=== PATIENT | female | born 1965 | race Caucasian/White ===

== ENCOUNTER 2021-04-18 11:45 | Observation (INO) ==
[2021-04-18] MEDS ORDERED: KETOROLAC TROMETHAMINE 15 MG/ML VIAL IV ONE ×2 (12:53→16:10)
[2021-04-18] MEDS ORDERED: methylPREDNISolone 125 MG/2 ML VIAL IV STA (12:53)
--- NOTE | 2021-04-18 12:56 | Emergency Department Note ---
History of Present Illness General Chief complaint: Back Injury/Pain Stated complaint: BACK PAIN Time Seen by Provider: 04/18/21 12:35 Source: patient Mode of arrival: ambulatory Limitations: no limitations History of Present Illness Maximum Pain Intensity: 7 This patient is a 55-year-old female who has a history of back issues comes in after complaint of back pain. She was in usual state of health yesterday was walking around and felt like her back was stiff. Overnight the pains increased to the point where she was having a hard time getting up this morning. She is seen by Dr. Davis regarding the past and called the office but they could not see her today. She said she had issues with her L4-5 area in December and they gave her prednisone therapy and she got better she is never had any back surgery. She s aid no recent fall or trauma she was helping a friend out with some yard work and doing some lifting and thinks she could have aggravated that way. There is been no fever chills no numbness weakness the legs or buttocks. No change in bowel or bladder function no dysuria hematuria. No abdominal pain. She is postmenopausal. She had the Covid vaccine series. No chest pain, shortness of breath or blood or melena in her stool. Home Medications Medication Instructions Recorded Confirmed Type cyanocobalamin (vitamin B-12) 1,000 mcg PO QAM tab 04/08/19 03/19/21 History 1,000 mcg tablet,extended release minocycline 50 mg capsule 50 mg PO DAILY PRN #90 cap 04/08/19 03/19/21 Rx multivitamin 1 tab PO QAM #30 tab 04/08/19 03/19/21 Rx cetirizine 10 mg tablet (All Day 10 mg PO DAILY #90 tab 03/15/20 03/19/21 Rx Allergy (cetirizine)) Saccharomyces boulardii 250 mg 250 mg PO DAILY cap 03/19/21 03/19/21 History capsule (Daily Probiotic (S. boulardii)) fluticasone propionate 50 2 spray INTNAS HS PRN gm 03/19/21 03/19/21 History mcg/actuation nasal spray,suspension (Allergy Relief (fluticasone)) methylprednisolone 4 mg tablets in 4 mg PO .qd #21 ea 04/18/21 Rx a dose pack (Medrol (Kunal)) methylprednisolone 4 mg tablets in 4 mg PO UD #1 packet 04/18/21 Rx a dose pack (Medrol (Kunal)) oxycodone 5 mg tablet 5 mg PO Q4 PRN #20 tab 04/18/21 Rx Allergies Allergy/AdvReac Type Severity Reaction Status Date / Time No Known Drug Allergies Allergy Verified 03/19/21 08:23 Past Med/Surg History Medical History (Updated 04/18/21 @ 18:25 by Branden Amin MD) Acne Surgical History H/O shoulder surgery History of colonoscopy December 2015 repeat 10yrs History of endometrial ablation History of wisdom tooth extraction Family History Mother Breast cancer Grandfather (Maternal) Coronary heart disease Father Hemochromatosis Social History Smoking Status: Never smoker Second Hand Exposure: No (PARENTS SMOKED); Hx Alcohol Use: Yes Alcohol type: hard liquor Hx Substance Use: No Preferred Language: Swedish Communication Ability: Effective Science Intern Required: No Beliefs That Will Affect Care: None marital status: Current Living Situation: Spouse current occupational status: retired Feels Safe at Home: Yes Childhood Exposure to Second-Hand Smoke: Yes caffeine: Yes (coffee, soda ) Dental Care, Regularly: Yes Physical Activity Frequency: Daily Seatbelt Use: always Assistive Devices: Glasses Review of Systems A total of 10 systems reviewed and were otherwise negative Physical Exam Vital Signs Vital Signs - 24 hr 04/18/21 11:47 04/18/21 13:15 04/18/21 15:00 Temperature 37.2 C Temperature Source Oral Pulse Rate 73 Pulse Rate [Finger] 84 68 Pulse Rhythm [Finger] Regular Pulse Strength [Finger] Normal Respiratory Rate 18 18 16 Respiratory Effort / Characteristics Non-Labored Respiratory Depth Normal Normal Respiratory Pattern Regular Blood Pressure 143/86 H Blood Pressure [Right Arm] 128/75 139/77 Blood Pressure Mean 105 Blood Pressure Mean [Right Arm] 92 97 Blood Pressure Position [Right Arm] Lying Pulse Oximetry 100 100 99 Oxygen Delivery Method Room Air Room Air Room Air Sepsis Recent Fever Within 48 Hours No Sepsis New/Unexplained Change in Mental Status No Sepsis Action Taken by Nursing No Action Required 04/18/21 17:51 Temperature Temperature Source Pulse Rate Pulse Rate [Finger] 87 Pulse Rhythm [Finger] Regular Pulse Strength [Finger] Normal Respiratory Rate 17 Respiratory Effort / Characteristics Non-Labored Respiratory Depth Normal Respiratory Pattern Regular Blood Pressure Blood Pressure [Right Arm] 130/70 Blood Pressure Mean Blood Pressure Mean [Right Arm] 90 Blood Pressure Position [Right Arm] Pulse Oximetry 96 Oxygen Delivery Method Room Air Sepsis Recent Fever Within 48 Hours Sepsis New/Unexplained Change in Mental Status Sepsis Action Taken by Nursing General: Well developed well nourished middle-age female who in no acute distr ess, breathing comfortably on room air. Normal speech HEENT: Normal cephalic atraumatic. Pupils are equal round and reactive to light. Extraocular movements are intact. Oropharynx is pink with moist mucous membranes. No swelling of the mouth lips or tongue. Neck: Supple with a midline trachea. No meningeal signs or stiffness, no JVD or bruits. No Stridor. Chest: Clear to auscultation bilaterally. No wheezes or rhonchi. No increased work of breathing. Heart: Regular rate and rhythm without murmurs or gallops. Abdomen: Soft nontender, nondistended without rebound guarding or rigidity. Extremities: No cyanosis clubbing or edema. No calf tenderness or assymetry Spine/Back. Non tender to palpation. No CVA tenderness. She is tender to palpation in the left SI area and towards the buttocks. There is no numbness there is reproducible reproducibly tender with palpation movement. No rash or redness or warmth. It hurts when her leg is moved as well Skin: Good turgor without rashes. Neurologic exam: Cranial nerves two through 12 are intact. Motor and sensation are intact and symmetrical throughout with exception of she has a mild foot drop in the right foot which is chronic. Course Administered Medications Discontinued Medications Ketorolac Tromethamine (Ketorolac Tromethamine 15 Mg/Ml Vial) 10 mg IV NOW ONE Stop: 04/18/21 12:54 Last Admin: 04/18/21 13:03 Dose: 10 mg Documented by: [id number] Ketorolac Tromethamine (Ketorolac Tromethamine 15 Mg/Ml Vial) 10 mg IV NOW ONE Stop: 04/18/21 16:11 Last Admin: 04/18/21 16:28 Dose: 10 mg Documented by: [id number] Methylprednisolone (Methylprednisolone 125 Mg/2 Ml Vial) 125 mg IV NOW STA Stop: 04/18/21 12:54 Last Admin: 04/18/21 13:03 Dose: 125 mg Documented by: [id number] Morphine Sulfate (Morphine Sulfate 4 Mg/Ml 1 Ml Carp\Vial) 4 mg IV NOW STA Stop: 04/18/21 14:30 Last Admin: 04/18/21 14:53 Dose: 4 mg Documented by: [id number] Morphine Sulfate (Morphine Sulfate 4 Mg/Ml 1 Ml Carp\Vial) 4 mg IV NOW STA Stop: 04/18/21 16:11 Last Admin: 04/18/21 16:28 Dose: 4 mg Documented by: [id number] Ondansetron HCl (Ondansetron Inj 2 Mg/Ml 2 Ml Vial) 4 mg IV NOW STA Stop: 04/18/21 14:30 Last Admin: 04/18/21 14:54 Dose: 4 mg Documented by: [id number] Medical Decision Making Differential Diagnosis Sciatica, cauda equina syndrome, disc disease, infection, UTI, intra-abdominal process, Covid Medical Records Attestation: I reviewed the patient's medical records. Home Medications Current Medication List: was personally reviewed by me Laboratory Data Result diagrams: 04/18/21 18:15 04/18/21 18:15 Lab Results 04/18/21 04/18/21 04/18/21 Range/Units 16:30 16:30 18:15 WBC 8.33 (4.8-10.8) K/uL RBC 4.53 (4.2-5.4) M/uL Hgb 14.0 (12.0-16.0) g/dL Hct 40.7 (37-47) % MCV 89.8 (80-100) fL MCH 30.9 (25-34) pg MCHC 34.4 (32-36) g/dL RDW Std Deviation 41.1 (36.4-46.3) fL RDW Coeff of July 12.7 (11.5-14.5) % Plt Count 349 (130-400) K/uL MPV 8.8 (7.4-10.4) fL Immature Gran % (Auto) 0.2 % Neut % (Auto) 92.3 % Lymph % (Auto) 7.0 % Divide % (Auto) 0.4 % Eos % (Auto) 0.0 % Baso % (Auto) 0.1 % Neut # (Auto) 7.69 H (1.4-6.5) K/uL Lymph # (Auto) 0.58 L (1.2-3.4) K/uL Divide # (Auto) 0.03 L (0.11-0.59) K/uL Eos # (Auto) 0.00 (0-0.5) K/uL Baso # (Auto) 0.01 (0-0.2) K/uL Immature Gran # (Auto) 0.02 (0.00-0.02) K/uL COVID-19 Eval Order Covid19 at [facility] SARS-CoV-2 (PCR) NEGATIVE (Negative) Imaging Data Radiologist's Impression: Lumbar Spine MRI 04/18/21 16:10 MR lumbar spine wo con CLINICAL HISTORY: 55 years-old Female with left sided back rad down leg. Acute low back pain with radiation into the left lower leg COMPARISON: Lumbar spine radiographs 11/15/2020, CT abdomen pelvis 02/04/2020 TECHNIQUE: Multiplanar, multi sequence MRI of the lumbar spine was performed without intravenous contrast. FINDINGS: The bottle selector localizer images demonstrate no gross extraspinal abnormality. Probable cyst of the left kidney, 11 mm. Chronic bilateral L5 pars defects with unchanged 7 mm anterolisthesis L5 on S1. Discogenic degeneration with spondylitic spurring and facet arthrosis as detailed below. Mild Modic type I endplate degenerative changes at L4-L5. There is no acute fracture, subluxation, significant bone marrow or soft tissue edema. No endplate erosions. Conus medullaris terminates at T12-L1. Signal within the imaged thoracic spinal cord appears normal. T12-L1: Mild facet arthrosis. No central canal or neural foraminal stenosis. L1-L2: Mild facet arthrosis. No central canal or neural foraminal stenosis. L2-L3: Mild disc desiccation with spondylitic spurring and posterior annular disc bulge, eccentric to the right neural foramen and far right lateral space. Moderate facet arthrosis. The central canal is patent. Mild narrowing of the right lateral recess and bilateral neural foramen. L3-L4: Mild spondylitic spurring with moderate facet arthrosis and small posterior annular disc bulge. Left foraminal annular fissure with disc extrusion measures 4 x 3 mm in transverse and AP dimension on image 16 series 6 and measures up to 1.5 cm in craniocaudal dimension extending several millimeters superior to the inferior L3 endplate. There is resultant severe left neural foraminal narrowing. The central canal is patent. Mild right neural foraminal na rrowing. L4-L5: Mild intervertebral disc space narrowing with disc desiccation. Small circumferential annular disc bulge with mild spondylitic spurring and severe facet arthrosis. Moderate bilateral facet effusions. The central canal is patent. Mild to moderate bilateral neural foraminal narrowing. L5-S1: Severe intervertebral disc space narrowing with unchanged grade 1 anterolisthesis. Moderate spondylitic spurring with circumferential annular disc bulge and disc space uncovering. Chronic bilateral L5 pars defects with severe facet arthrosis. The central canal is patent. Moderate right with moderate to severe left neural foraminal narrowing. IMPRESSION: 1. At L3-L4, there is a left foraminal annular fissure with disc extrusion which results in severe left-sided foraminal stenosis. 2. Chronic bilateral L5 pars defects with unchanged grade 1 anterolisthesis. There is moderate right with moderate to severe left neural foraminal narrowing at this interspace. 3. Multilevel facet arthrosis with associated discogenic degeneration and spondylitic spurring as above. ACT 112: Negative or not required by law. The above report was generated using voice recognition software. It may contain grammatical, syntax or spelling errors. Electronically signed by: Ronen Fuentes M.D. 04/18/2021 5:58 PM MDM Narrative This patient comes in after having back pain. she has known lumbar disc disease at L4-5. she has sciatica type symptoms is reproducible with movement of her leg and movement. She has no neurologic deficit. She has nothing to suggest that she has cauda equina syndrome. She has no fever or anything to suggest infection. IV access was established and she was given Toradol 10 mg IV and Solu-Medrol 125 mg IV. She tried to get up after this and had much more severe pain as it hurts a lot with movement in light of this I did give her morphine 4 mg IV and Zofran 4 mg IV she felt a lot better with this. I do not think imaging is warranted at this point as x-rays would unlikely be helpful as she is healthy and had no trauma. She may ultimately need MRI if this persists but again she has no acute neurologic deficits. Her Covid test was negative. MRI shows a severe left nerve foraminal stenosis due to disc. The patient was feeling a lot better but the pain started to come back. Given her MRI findings and her need for multiple pain medication I do think she has been managed for pain medication and orthopedics consultation. I have consulted Dr. Workman for these measures. I also did discuss the case with Dr. Villarreal who reviewed the MRI. He agrees with the plan and feels the patient should see pain management while in the hospital and can potentially have an injection for this and she can have surgery if needed in about 6 weeks when this cools down. Impression & Plan Intractable low back pain, Lab test negative for COVID-19 virus, Sciatica, Lumbar disc disease Discharge Plan Visit Data Chief Complaint: Back Injury/Pain Stated Complaint: BACK PAIN ED Provider: Branden Amin Discharge Problem: Intractable low back pain, Lab test negative for COVID-19 virus, Sciatica, Lumbar disc disease Discharge Instructions Activity Restrictions/Additional Instructions: Rest. Drink plenty of fluids. Use ibuprofen 400 mg every 6 hours, take with food. Alternative you could use Aleve in the [id number] dosages Use Medrol Dosepak as directedsteroid taper For more severe pain may use OxyIR 5 mg, 1 pill every 4-6 hours as needed. OxyIR may make you drowsy do not take before drinking, driving, working Follow-up with Dr. Vo from [facility] orthopedics/spine Return to the ER if: increasing pain, pain not adequately controlled, numbness or weakness, change in bowel bladder function, any new problems or concerns Forms Stand Alone Forms: My [facility] Prescriptions Prescriptions: New methylprednisolone [Medrol (Kunal)] 4 mg tablets,dose pack 4 mg PO .qd Qty: 21 RF: 0 oxycodone 5 mg tablet 5 mg PO Q4 PRN (Reason: pain) Qty: 20 RF: 0 No Action methylprednisolone [Medrol (Kunal)] 4 mg tablets,dose pack 4 mg PO UD Qty: 1 RF: 0 cetirizine [All Day Allergy (cetirizine)] 10 mg tablet 10 mg PO DAILY Qty: 90 RF: 3 Saccharomyces boulardii [Daily Probiotic (S. boulardii)] 250 mg capsule 250 mg PO DAILY RF: 0 cyanocobalamin (vitamin B-12) 1,000 mcg tablet extended release 1,000 mcg PO QAM RF: 0 multivitamin tablet 1 tab PO QAM Qty: 30 RF: 0 minocycline 50 mg capsule 50 mg PO DAILY PRN (Reason: acne) Qty: 90 RF: 0 fluticasone propionate [Allergy Relief (fluticasone)] 50 mcg/actuation spray,suspension 2 spray INTNAS HS PRNRF: 0 Referrals Referrals: Yue Richard MD [Primary Care Provider] -
[2021-04-18] MEDS ORDERED: MoRPHine SULFATE 4 MG/ML 1 ML CARP\\VIAL IV STA ×3 (14:29→18:43)
[2021-04-18] MEDS ORDERED: ONDANSETRON INJ 2 MG/ML 2 ML VIAL IV STA (14:29)
--- NOTE | 2021-04-18 17:59 | Magnetic Resonance Report ---
MR lumbar spine wo con CLINICAL HISTORY: 55 years-old Female with left sided back rad down leg. Acute low back pain with ra diation into the left lower leg COMPARISON: Lumbar spine radiographs 11/15/2020, CT abdomen pelvis 02/04/2020 TECHNIQUE: Multiplanar, multi sequence MRI of the lumbar spine was performed without intravenous cont rast. FINDINGS: The oil field operator localizer images demonstrate no gross extraspinal abnormality. Probable cyst of the left ki dney, 11 mm. Chronic bilateral L5 pars defects with unchanged 7 mm anterolisthesis L5 on S1. Discogen ic degeneration with spondylitic spurring and facet arthrosis as detailed below. Mild Modic type I en dplate degenerative changes at L4-L5. There is no acute fracture, subluxation, significant bone marro w or soft tissue edema. No endplate erosions. Conus medullaris terminates at T12-L1. Signal within th e imaged thoracic spinal cord appears normal. T12-L1: Mild facet arthrosis. No central canal or neural foraminal stenosis. L1-L2: Mild facet arthrosis. No central canal or neural foraminal stenosis. L2-L3: Mild disc desiccation with spondylitic spurring and posterior annular disc bulge, eccentric to the right neural foramen and far right lateral space. Moderate facet arthrosis. The central canal is patent. Mild narrowing of the right lateral recess and bilateral neural foramen. L3-L4: Mild spondylitic spurring with moderate facet arthrosis and small posterior annular disc bulg e. Left foraminal annular fissure with disc extrusion measures 4 x 3 mm in transverse and AP dimensio n on image 16 series 6 and measures up to 1.5 cm in craniocaudal dimension extending several millimet ers superior to the inferior L3 endplate. There is resultant severe left neural foraminal narrowing. The central canal is patent. Mild right neural foraminal narrowing. L4-L5: Mild intervertebral disc space narrowing with disc desiccation. Small circumferential annular disc bulge with mild spondylitic spurring and severe facet arthrosis. Moderate bilateral facet effus ions. The central canal is patent. Mild to moderate bilateral neural foraminal narrowing. L5-S1: Severe intervertebral disc space narrowing with unchanged grade 1 anterolisthesis. Moderate s pondylitic spurring with circumferential annular disc bulge and disc space uncovering. Chronic bilate ral L5 pars defects with severe facet arthrosis. The central canal is patent. Moderate right with mod erate to severe left neural foraminal narrowing. IMPRESSION: 1. At L3-L4, there is a left foraminal annular fissure with disc extrusion which results in severe le ft-sided foraminal stenosis. 2. Chronic bilateral L5 pars defects with unchanged grade 1 anterolisthesis. There is moderate right with moderate to severe left neural foraminal narrowing at this interspace. 3. Multilevel facet arthrosis with associated discogenic degeneration and spondylitic spurring as abo ve. ACT 112: Negative or not required by law. The above report was generated using voice recognition software. It may contain grammatical, syntax o r spelling errors. Electronically signed by: Ronen Fuentes M.D. 04/18/2021 5:58 PM
[2021-04-18 18:37] LABS: Basophils # (auto) 0.01 K/uL (0-0.2); Basophils % (auto) 0.1 %; Hematocrit (blood only) 40.7 % (37-47); Immature Granulocytes # (auto) 0.02 K/uL (0.00-0.02); Immature Granulocytes % (auto) 0.2 %; Lymphocytes # (auto) 0.58 K/uL (1.2-3.4); Mean Corpuscular Hemoglobin 30.9 pg (25-34); Mean Corpuscular Hgb Conc 34.4 g/dL (32-36); Mean Corpuscular Volume 89.8 fL (80-100); Mean Platelet Volume 8.8 fL (7.4-10.4); Monocytes # (auto) 0.03 K/uL (0.11-0.59); Monocytes % (auto) 0.4 %; Neutrophils # (auto) 7.69 K/uL (1.4-6.5); Neutrophils % (auto) 92.3 %; Platelet Count 349 K/uL (130-400); RDW Coefficient of Variation 12.7 % (11.5-14.5); RDW Standard Deviation 41.1 fL (36.4-46.3); Red Blood Count 4.53 M/uL (4.2-5.4); White Blood Count 8.33 K/uL (4.8-10.8)
--- NOTE | 2021-04-18 18:40 | Communication Note ---
Date of Service: April 18, 2021 Telephone consult completed on patient at request of Dr. Branden Amin, [facility] [id number] previously known to me with new onset <24hr history of left leg radiculopathy with MRI finding of left L3-4 foraminal disc herniation neurologically unchanged from prior visit with no neurological deficit of the left lower extremity unable to be discharged home due to pain issues Plan: - urgent surgery not indicated for patient; should undergo course of non-op management for 6 weeks first - recommend admission under hospitalist service with consult to pain management for consideration of left L3-4 TF injection or ASTON injection while inpatient - will benefit from PT, steroids followed by NSAIDs - follow-up 1-2 weeks in my clinic Mikaela Villarreal MD Spine Surgeon [facility]
[2021-04-18 19:01] LABS: BUN Creatinine Ratio 19.2 (10-20); Blood Urea Nitrogen 15 mg/dl (7-18); Calcium 9.1 mg/dl (8.5-10.1); Carbon Dioxide 27 mmol/L (21-32); Chloride 108 mmol/L (98-107); Est GFR (African American) 97.7 ml/min; Est GFR (Non-African American) 84.3 ml/min; Glucose 163 mg/dl (70-99); Potassium 3.8 mmol/L (3.5-5.1); Sodium 140 mmol/L (136-145)
--- NOTE | 2021-04-18 19:45 | History & Physical Report ---
Date of Service April 18, 2021 Assessment & Plan (1) Intractable low back pain: Plan: 55yo female with no significant past medical history presenting with severe backpain, difficulty ambulating. Patient mowed the lawn and did some lifting last week and noted soreness of her back. Has had severe pain with radicular symptoms since 23:30 last evening. Numbness in LLE corresponds with L3-L4 dermatome. MRI reveals left foraminal annular fissure with disc extrusion at L3-L4 resulting in severe left-sided foraminal stenosis. Chronic bilateral L5 pars defect. Multilevel facet arthrosis. Patient administered several doses of morphine as well as solumedrol in the ER. Pain is presently improved. -Observation to medical floor -Tylenol 1gm PO TID -Lidoderm patch -Toradol 15mg IV q 6 hours PRN -Morphine PRN -Steroid taper - 60mg po x 2, 40mg po x 2, 20mg po x 2 and 10mg po x 2 -PT/OT evaluation Plan: F/E/N - [place]. Monitor electrolytes. Regular diet as tolerated Ppx - Lovenox Code - Full per discussion with patient Dispo - Observation to medical floor History of Present Illness Chief Complaint: back pain Primary Care Provider: Yue Richard MD Bessy Desai is a 55yo female with no significant medical history presenting with intractable back pain, difficulty with ambulation. Patient mowed the lawn last week and helped her friend with some landscaping. She states that her back felt tight following these activities. Last evening around 23:00 she had acute worsening of her low back pain. She was unable to rest. This morning she was unable to get out of bed and ambulate. Her pain is located on left lumbar regio n with radiation into her left buttock as well as numbness in her left medial thigh and knee. She feels that her left leg is weak and gives out on her with ambulation. She denies trauma. No fever/chills/rigors. Denies bowel or bladder incontinence or retention. No additional complaints at this time. Specifically denies chest pain, palpitations, cough, SOB, nausea, vomiting, diarrhea or cons tipation. ER Course: Morphine 4mg IV x 3, Toradol 10mg IV x 2, Zofran 4mg IV, Solumedrol 125mg IV Allergies Allergy/AdvReac Type Severity Reaction Status Date / Time No Known Drug Allergies Allergy Verified 03/19/21 08:23 Home Medications Medication Instructions Recorded Confirmed Type cyanocobalamin (vitamin B-12) 1,000 mcg PO QAM tab 04/08/19 04/18/21 History 1,000 mcg tablet,extended release multivitamin 1 tab PO QAM #30 tab 04/08/19 04/18/21 Rx cetirizine 10 mg tablet (All Day 10 mg PO DAILY #90 tab 03/15/20 04/18/21 Rx Allergy (cetirizine)) fluticasone propionate 50 2 spray INTNAS HS PRN gm 03/19/21 04/18/21 History mcg/actuation nasal spray,suspension (Allergy Relief (fluticasone)) methylprednisolone 4 mg tablets in 4 mg PO .qd #21 ea 04/18/21 Rx a dose pack (Medrol (Kunal)) oxycodone 5 mg tablet 5 mg PO Q4 PRN #20 tab 04/18/21 Rx Past Med/Surg History Medical History (Updated 04/18/21 @ 18:25 by Branden Amin MD) Acne Surgical History H/O shoulder surgery History of colonoscopy December 2015 repeat 10yrs History of endometrial ablation History of wisdom tooth extraction Family History Mother Breast cancer Grandfather (Maternal) Coronary heart disease Father Hemochromatosis Social History Smoking Status: Never smoker Second Hand Exposure: No (PARENTS SMOKED); Hx Alcohol Use: Yes Alcohol type: hard liquor Hx Substance Use: No Preferred Language: Kinyarwanda Communication Ability: Effective Butcher Helper Required: No Beliefs That Will Affect Care: None marital status: Current Living Situation: Spouse current occupational status: retired Feels Safe at Home: Yes Childhood Exposure to Second-Hand Smoke: Yes caffeine: Yes (coffee, soda ) Dental Care, Regularly: Yes Physical Activity Frequency: Daily Seatbelt Use: always Assistive Devices: Glasses Review of Systems Review of Systems: All systems reviewed & are unremarkable except as noted in HPI & below Physical Exam Physical Exam: General: patient resting comfortably, NAD, non-toxic in appearance, AA&O x 4 Skin: warm, dry, intact, no rashes or lesions HEENT: NC/AT, PERRL, EOMI, anicteric sclera, conjunctiva without injection, external ear normal to inspection and nontender, nares patent, moist mucus membranes, dentition intact, no oropharyngeal lesions, neck supple, trachea midline, no LAD, no thyromegaly, no JVD Heart: +S1/S2, regular, no m/r/g Lungs: equal air entry bilaterally, no rales/rhonchi/wheezes Abd: +BS, soft, NT/ND, no masses/organomegaly/ascites Ext: warm, 2+ pulses in UE/LE bilaterally, no clubbing/cyanosis or edema Neuro: nonfocal, patient AA&O x 4, speech intact, no facial droop, moving all extremities on command with equal strength 5/5 Pain with palpation of left lumbar region and sacral region Mild numbness of left medial thigh and knee Strength intact Results & Data Results & Data ([facility]) Vital Signs (Past 12 Hours) Vital Signs Temp Pulse Pulse Resp BP BP Pulse Ox 04/18/21 19:08 87 16 116/69 97 04/18/21 17:51 87 17 130/70 96 04/18/21 15:00 68 16 139/77 99 04/18/21 13:15 84 18 128/75 100 04/18/21 11:47 37.2 C 73 18 143/86 H 100 Laboratory Results Laboratory Results WBC 8.33 K/uL (4.8-10.8) 04/18/21 18:15 RBC 4.53 M/uL (4.2-5.4) 04/18/21 18:15 Hgb 14.0 g/dL (12.0-16.0) 04/18/21 18:15 Hct 40.7 % (37-47) 04/18/21 18:15 MCV 89.8 fL (80-100) 04/18/21 18:15 MCH 30.9 pg (25-34) 04/18/21 18:15 MCHC 34.4 g/dL (32-36) 04/18/21 18:15 RDW Std Deviation 41.1 fL (36.4-46.3) 04/18/21 18:15 RDW Coeff of July 12.7 % (11.5-14.5) 04/18/21 18:15 Plt Count 349 K/uL (130-400) 04/18/21 18:15 MPV 8.8 fL (7.4-10.4) 04/18/21 18:15 Immature Gran % (Auto) 0.2 % 04/18/21 18:15 Neut % (Auto) 92.3 % 04/18/21 18:15 Lymph % (Auto) 7.0 % 04/18/21 18:15 [place] % (Auto) 0.4 % 04/18/21 18:15 Eos % (Auto) 0.0 % 04/18/21 18:15 Baso % (Auto) 0.1 % 04/18/21 18:15 Neut # (Auto) 7.69 K/uL (1.4-6.5) H 04/18/21 18:15 Lymph # (Auto) 0.58 K/uL (1.2-3.4) L 04/18/21 18:15 [place] # (Auto) 0.03 K/uL (0.11-0.59) L 04/18/21 18:15 Eos # (Auto) 0.00 K/uL (0-0.5) 04/18/21 18:15 Baso # (Auto) 0.01 K/uL (0-0.2) 04/18/21 18:15 Immature Gran # (Auto) 0.02 K/uL (0.00-0.02) 04/18/21 18:15 Sodium 140 mmol/L (136-145) 04/18/21 18:15 Potassium 3.8 mmol/L (3.5-5.1) 04/18/21 18:15 Chloride 108 mmol/L (98-107) H 04/18/21 18:15 Carbon Dioxide 27 mmol/L (21-32) 04/18/21 18:15 Anion Gap 5.0 (3-11) 04/18/21 18:15 BUN 15 mg/dl (7-18) 04/18/21 18:15 Creatinine 0.79 mg/dl (0.6-1.2) 04/18/21 18:15 Est Cr Clr Drug Dosing Not Reportable 04/18/21 18:15 Est GFR ( Amer) 97.7 ml/min 04/18/21 18:15 Est GFR (Non-Af Amer) 84.3 ml/min 04/18/21 18:15 BUN/Creatinine Ratio 19.2 (10-20) 04/18/21 18:15 Glucose 163 mg/dl (70-99) H 04/18/21 18:15 Calcium 9.1 mg/dl (8.5-10.1) 04/18/21 18:15 Urine Color Yellow 04/18/21 18:15 Urine Appearance Clear (Clear) 04/18/21 18:15 Urine pH 6.0 (4.5-7.5) 04/18/21 18:15 Ur Specific [place] 1.024 (1.000-1.030) 04/18/21 18:15 Urine Protein Trace (Negative) H 04/18/21 18:15 Urine Glucose (UA) Negative (Negative) 04/18/21 18:15 Urine Ketones 2+ (Negative) H 04/18/21 18:15 Urine Blood 2+ (Negative) H 04/18/21 18:15 Urine Nitrite Negative (Negative) 04/18/21 18:15 Urine Bilirubin Negative (Negative) 04/18/21 18:15 Urine Urobilinogen Negative (Negative) 04/18/21 18:15 Ur Leukocyte Esterase 1+ (Negative) H 04/18/21 18:15 Urine WBC (Auto) 10-30 /hpf (0-5) H 04/18/21 18:15 Urine RBC (Auto) 10-30 /hpf (0-4) H 04/18/21 18:15 U Hyaline Cast (Auto) 5-10 /lpf (0-5) H 04/18/21 18:15 U Epithel Cells (Auto) 20-30 /lpf (0-5) H 04/18/21 18:15 Urine Bacteria (Auto) Negative (Negative) 04/18/21 18:15 COVID-19 Eval Order Covid19 at [facility] 04/18/21 16:30 SARS-CoV-2 (PCR) NEGATIVE (Negative) 04/18/21 16:30 Impressions Lumbar Spine MRI 04/18/21 16:10 MR lumbar spine wo con CLINICAL HISTORY: 55 years-old Female with left sided back rad down leg. Acute low back pain with radiation into the left lower leg COMPARISON: Lumbar spine radiographs 11/15/2020, CT abdomen pelvis 02/04/2020 TECHNIQUE: Multiplanar, multi sequence MRI of the lumbar spine was performed without intravenous contrast. FINDINGS: The retirement plan specialist localizer images demonstrate no gross extraspinal abnormality. Probable cyst of the left kidney, 11 mm. Chronic bilateral L5 pars defects with unchanged 7 mm anterolisthesis L5 on S1. Discogenic degeneration with spondylitic spurring and facet arthrosis as detailed below. Mild Modic type I endplate degenerative changes at L4-L5. There is no acute fracture, subluxation, significant bone marrow or soft tissue edema. No endplate erosions. Conus medullaris terminates at T12-L1. Signal within the imaged thoracic spinal cord appears normal. T12-L1: Mild facet arthrosis. No central canal or neural foraminal stenosis. L1-L2: Mild facet arthrosis. No central canal or neural foraminal stenosis. L2-L3: Mild disc desiccation with spondylitic spurring and posterior annular disc bulge, eccentric to the right neural foramen and far right lateral space. Moderate facet arthrosis. The central canal is patent. Mild narrowing of the right lateral recess and bilateral neural foramen. L3-L4: Mild spondylitic spurring with moderate facet arthrosis and small posterior annular disc bulge. Left foraminal annular fissure with disc extrusion measures 4 x 3 mm in transverse and AP dimension on image 16 series 6 and measures up to 1.5 cm in craniocaudal dimension extending several millimeters superior to the inferior L3 endplate. There is resultant severe left neural foraminal narrowing. The central canal is patent. Mild right neural foraminal narrowing. L4-L5: Mild intervertebral disc space narrowing with disc desiccation. Small circumferential annular disc bulge with mild spondylitic spurring and severe facet arthrosis. Moderate bilateral facet effusions. The central canal is patent. Mild to moderate bilateral neural foraminal narrowing. L5-S1: Severe intervertebral disc space narrowing with unchanged grade 1 anterolisthesis. Moderate spondylitic spurring with circumferential annular disc bulge and disc space uncovering. Chronic bilateral L5 pars defects with severe facet arthrosis. The central canal is patent. Moderate right with moderate to severe left neural foraminal narrowing. IMPRESSION: 1. At L3-L4, there is a left foraminal annular fissure with disc extrusion which results in severe left-sided foraminal stenosis. 2. Chronic bilateral L5 pars defects with unchanged grade 1 anterolisthesis. There is moderate right with moderate to severe left neural foraminal narrowing at this interspace. 3. Multilevel facet arthrosis with associated discogenic degeneration and spondylitic spurring as above. ACT 112: Negative or not required by law. The above report was generated using voice recognition software. It may contain grammatical, syntax or spelling errors. Electronically signed by: Ronen Fuentes M.D. 04/18/2021 5:58 PM Code Status & VTE Plan VTE Prophylaxis Plan VTE Prophylaxis will be ordered: Yes PG Care Time/CCT Total # of Minutes Spent Total Time Spent with Patient: Total time spent is greater than 50% in coordination of care (as documented) at patient's floor/unit and/or counseling patient: Coding Level of Care Code INT OBSERVATION CARE 50M LVL 2 Diagnoses Intractable low back pain M54.59
[2021-04-18 20:12] LABS: Appearance Urine Clear (Clear); Bacteria Urine Automated Negative (Negative); Bilirubin Urine Negative (Negative); Blood Urine 2+ (Negative); Color Urine Yellow; Epithelial Cell Urine Auto 20-30 /lpf (0-5); Glucose Urine UA Negative (Negative); Ketones Urine 2+ (Negative); Leukocyte Esterase Urine 1+ (Negative); Nitrite Urine Negative (Negative); Protein Urine Trace (Negative); Specific Gravity Urine 1.024 (1.000-1.030); Urobilinogen Urine Negative (Negative)
[2021-04-18] MEDS ORDERED: MoRPHine SULFATE 2 MG/ML CARP IV PRN (21:46)
[2021-04-18] MEDS ORDERED: KETOROLAC TROMETHAMINE 15 MG/ML VIAL IV PRN (21:46)
[2021-04-18] MEDS ORDERED: ONDANSETRON INJ 2 MG/ML 2 ML VIAL IV PRN (21:46)
[2021-04-18] MEDS ORDERED: POLYETHYLENE (MIRALAX) 17 GM PACK PO PRN (21:46)
[2021-04-18] MEDS ORDERED: DOCUSATE SODIUM 100 MG CAP PO PRN (21:46)
[2021-04-18] MEDS ORDERED: MoRPHine SULFATE 4 MG/ML 1 ML CARP\\VIAL IV PRN (21:46)
[2021-04-18] MEDS ORDERED: ENOXAPARIN INJ 40 MG/0.4 ML SYR SQ SCH (22:00)
[2021-04-18] MEDS: ACETAMINOPHEN 500 MG TAB PO SCH (23:11)
[2021-04-19] MEDS: ACETAMINOPHEN 500 MG TAB PO SCH (06:06)
[2021-04-19] MEDS ORDERED: LIDOCAINE 5% 1 PATCH TD SCH (09:00)
[2021-04-19] MEDS ORDERED: CETIRIZINE HCL 10 MG TABLET PO SCH (09:00)
[2021-04-19] MEDS ORDERED: predniSONE 20 MG TAB PO SCH (09:00)
--- NOTE | 2021-04-19 09:37 | Hospitalist Progress Note ---
Date of Service April 19, 2021 Assessment & Plan Admission and Anticipated Discharge Date Admission Date: April 18, 2021 Results & Data Results & Data ([facility]) Vital Signs (Past 12 Hours) Vital Signs Temp Pulse Resp BP Pulse Ox 04/19/21 07:35 36.8 C 87 18 106/60 98 Laboratory Results 04/18/21 04/18/21 04/18/21 Range/Units 18:15 18:15 18:15 WBC 8.33 (4.8-10.8) K/uL RBC 4.53 (4.2-5.4) M/uL Hgb 14.0 (12.0-16.0) g/dL Hct 40.7 (37-47) % MCV 89.8 (80-100) fL MCH 30.9 (25-34) pg MCHC 34.4 (32-36) g/dL RDW Std Deviation 41.1 (36.4-46.3) fL RDW Coeff of July 12.7 (11.5-14.5) % Plt Count 349 (130-400) K/uL MPV 8.8 (7.4-10.4) fL Immature Gran % (Auto) 0.2 % Neut % (Auto) 92.3 % Lymph % (Auto) 7.0 % [place] % (Auto) 0.4 % Eos % (Auto) 0.0 % Baso % (Auto) 0.1 % Neut # (Auto) 7.69 H (1.4-6.5) K/uL Lymph # (Auto) 0.58 L (1.2-3.4) K/uL [place] # (Auto) 0.03 L (0.11-0.59) K/uL Eos # (Auto) 0.00 (0-0.5) K/uL Baso # (Auto) 0.01 (0-0.2) K/uL Immature Gran # (Auto) 0.02 (0.00-0.02) K/uL Sodium 140 (136-145) mmol/L Potassium 3.8 (3.5-5.1) mmol/L Chloride 108 H (98-107) mmol/L Carbon Dioxide 27 (21-32) mmol/L Anion Gap 5.0 (3-11) BUN 15 (7-18) mg/dl Creatinine 0.79 (0.6-1.2) mg/dl Est Cr Clr Drug Dosing Not Reportable Est GFR ( Amer) 97.7 ml/min Est GFR (Non-Af Amer) 84.3 ml/min BUN/Creatinine Ratio 19.2 (10-20) Glucose 163 H (70-99) mg/dl Calcium 9.1 (8.5-10.1) mg/dl Urine Color Yellow Urine Appearance Clear (Clear) Urine pH 6.0 (4.5-7.5) Ur Specific [place] 1.024 (1.000-1.030) Urine Protein Trace H (Negative) Urine Glucose (UA) Negative (Negative) Urine Ketones 2+ H (Negative) Urine Blood 2+ H (Negative) Urine Nitrite Negative (Negative) Urine Bilirubin Negative (Negative) Urine Urobilinogen Negative (Negative) Ur Leukocyte Esterase 1+ H (Negative) Urine WBC (Auto) 10-30 H (0-5) /hpf Urine RBC (Auto) 10-30 H (0-4) /hpf U Hyaline Cast (Auto) 5-10 H (0-5) /lpf U Epithel Cells (Auto) 20-30 H (0-5) /lpf Urine Bacteria (Auto) Negative (Negative) COVID-19 Eval Order SARS-CoV-2 (PCR) (Negative) 04/18/21 04/18/21 Range/Units 16:30 16:30 WBC (4.8-10.8) K/uL RBC (4.2-5.4) M/uL Hgb (12.0-16.0) g/dL Hct (37-47) % MCV (80-100) fL MCH (25-34) pg MCHC (32-36) g/dL RDW Std Deviation (36.4-46.3) fL RDW Coeff of July (11.5-14.5) % Plt Count (130-400) K/uL MPV (7.4-10.4) fL Immature Gran % (Auto) % Neut % (Auto) % Lymph % (Auto) % [place] % (Auto) % Eos % (Auto) % Baso % (Auto) % Neut # (Auto) (1.4-6.5) K/uL Lymph # (Auto) (1.2-3.4) K/uL [place] # (Auto) (0.11-0.59) K/uL Eos # (Auto) (0-0.5) K/uL Baso # (Auto) (0-0.2) K/uL Immature Gran # (Auto) (0.00-0.02) K/uL Sodium (136-145) mmol/L Potassium (3.5-5.1) mmol/L Chloride (98-107) mmol/L Carbon Dioxide (21-32) mmol/L Anion Gap (3-11) BUN (7-18) mg/dl Creatinine (0.6-1.2) mg/dl Est Cr Clr Drug Dosing Est GFR ( Amer) ml/min Est GFR (Non-Af Amer) ml/min BUN/Creatinine Ratio (10-20) Glucose (70-99) mg/dl Calcium (8.5-10.1) mg/dl Urine Color Urine Appearance (Clear) Urine pH (4.5-7.5) Ur Specific [place] (1.000-1.030) Urine Protein (Negative) Urine Glucose (UA) (Negative) Urine Ketones (Negative) Urine Blood (Negative) Urine Nitrite (Negative) Urine Bilirubin (Negative) Urine Urobilinogen (Negative) Ur Leukocyte Esterase (Negative) Urine WBC (Auto) (0-5) /hpf Urine RBC (Auto) (0-4) /hpf U Hyaline Cast (Auto) (0-5) /lpf U Epithel Cells (Auto) (0-5) /lpf Urine Bacteria (Auto) (Negative) COVID-19 Eval Order Covid19 at [facility] SARS-CoV-2 (PCR) NEGATIVE (Negative) PG Care Time/CCT Total # of Minutes Spent Total Time Spent with Patient: Total time spent is greater than 50% in coordination of care (as documented) at patient's floor/unit and/or counseling patient: Coding
[2021-04-19 10:32] LABS: BUN Creatinine Ratio 28.4 (10-20); Calcium 8.7 mg/dl (8.5-10.1); Creatinine Clr Calc Pharmacy 79.8 ml/min; Est GFR (African American) 102.3 ml/min; Est GFR (Non-African American) 88.3 ml/min
--- NOTE | 2021-04-19 12:51 | Orthopedic Consultation ---
Date of Service April 19, 2021 Assessment & Plan (1) Lumbar disc herniation with radiculopathy: Plan: - urgent surgery not indicated for patient; should undergo course of non-op management for 6 weeks first - will benefit from pain management referral for consideration of left L3-4 TF injection or ASTON injection - will benefit from PT, continuation of oral steroids, followed by NSAIDs - follow-up 1-2 weeks in ortho spine clinic History of Present Illness Reason for Consultation: Acute L3-L4 herniated disc affecting left lower extremity Requesting Physician: . Attending Physician: Pacheco Jeronimo Rei Doherty is a pleasant 55 year old female (previous patient of Dr. Villarreal) with no significant past medical history, who suffered an acute L3-L4 disc herniation about two days ago after doing yard work one week prior. Patient states her pain has significantly improved since the initial onset. She no longer experiences any radiating pain in her left lower extremity. She does still experience numbness/tingling at her left medial/anterior knee. She also reports weakness with attempted left knee extension and attempted left hip flexion. She has been visiting with physical therapy for ambulatory assistance and lower extremity strengthening. She has been placed on an oral steroid. Pain management will be seeing her today as well for discuss of injections. She denies any new bowel/bladder incontinence, saddle anesthesia, new balance issues, or problems with dexterity/fine motor skills. Allergies Allergy/AdvReac Type Severity Reaction Status Date / Time No Known Drug Allergies Allergy Verified 03/19/21 08:23 Home Medications Medication Instructions Recorded Confirmed Type cyanocobalamin (vitamin B-12) 1,000 mcg PO QAM tab 04/08/19 04/18/21 History 1,000 mcg tablet,extended release multivitamin 1 tab PO QAM #30 tab 04/08/19 04/18/21 Rx cetirizine 10 mg tablet (All Day 10 mg PO DAILY #90 tab 03/15/20 04/18/21 Rx Allergy (cetirizine)) fluticasone propionate 50 2 spray INTNAS HS PRN gm 03/19/21 04/18/21 History mcg/actuation nasal spray,suspension (Allergy Relief (fluticasone)) oxycodone 5 mg tablet 5 mg PO Q4 PRN #20 tab 04/18/21 Rx celecoxib 100 mg capsule (Celebrex) 100 mg PO BID 10 Days #20 cap 04/19/21 Rx prednisone 20 mg tablet See Rx Instructions .ROUTE 04/19/21 Rx .COMPLEX #10 tab Past Med/Surg History Medical History Acne Chronic low back pain Lumbar disc herniation with radiculopathy Lumbar radiculopathy Surgical History H/O shoulder surgery History of colonoscopy December 2015 repeat 10yrs History of endometrial ablation History of wisdom tooth extraction Family History Mother Breast cancer Grandfather (Maternal) Coronary heart disease Father Hemochromatosis Social History Smoking Status: Never smoker Second Hand Exposure: No; Hx Alcohol Use: Yes Alcohol type: wine Hx Substance Use: No Preferred Language: Swedish Communication Ability: Effective Jaw Skinner Required: No Beliefs That Will Affect Care: None marital status: Current Living Situation: Spouse current occupational status: retired Feels Safe at Home: Yes Childhood Exposure to Second-Hand Smoke: Yes caffeine: Yes (coffee, soda ) Dental Care, Regularly: Yes Physical Activity Frequency: Daily Seatbelt Use: always Assistive Devices: None Review of Systems All systems reviewed & are unremarkable except as noted in HPI & below. Physical Exam . Musculoskeletal: 5/5 motor strength bilateral L2-S1 except 3/5 left hip flexion and 3/5 left knee extension. Straight leg raise negative bilaterally Neurologic: Sensation 2/2 to light touch bilateral L2-S1 except 1/2 left L3. Reflexes are 2+ right patella and 2+ ankle bilaterally. 1+ left patella. Babinski negative. No clonus. Global sagittal and coronal balance are within normal limits. Skin on the lower back is healthy with no rashes, lesions or surgical scars. No excessive kyphosis or scoliosis. Lumbar spine range of motion is limited by pain and stiffness. Bilateral lower extremity range of motion is within normal limits with no increased pain. No obvious hip, knee, or ankle pathology bilaterally Bilateral lower extremities are well perfused with no signs of DVT. Results & Data Results & Data Laboratory Results . Diagnostic Findings . Lumbar MRI from 04/18/21 independently reviewed/interpreted. Findings: Severe left foraminal stenosis at L3-L4 with disc protrusion grade 1 isthmic spondy L5-S1 with moderate left foraminal stenosis Reported as "FINDINGS: The measurer machine localizer images demonstrate no gross extraspinal abnormality. Probable cyst of the left kidney, 11 mm. Chronic bilateral L5 pars defects with unchanged 7 mm anterolisthesis L5 on S1. Discogenic degeneration with spondylitic spurring and facet arthrosis as detailed below. Mild Modic type I endplate degenerative changes at L4-L5. There is no acute fracture, subluxation, significant bone marrow or soft tissue edema. No endplate erosions. Conus medullaris terminates at T12-L1. Signal within the imaged thoracic spinal cord appears normal. T12-L1: Mild facet arthrosis. No central canal or neural foraminal stenosis. L1-L2: Mild facet arthrosis. No central canal or neural foraminal stenosis. L2-L3: Mild disc desiccation with spondylitic spurring and posterior annular disc bulge, eccentric to the right neural foramen and far right lateral space. Moderate facet arthrosis. The central canal is patent. Mild narrowing of the right lateral recess and bilateral neural foramen. L3-L4: Mild spondylitic spurring with moderate facet arthrosis and small posterior annular disc bulge. Left foraminal annular fissure with disc extrusion measures 4 x 3 mm in transverse and AP dimension on image 16 series 6 and measures up to 1.5 cm in craniocaudal dimension extending several millimeters superior to the inferior L3 endplate. There is resultant severe left neural foraminal narrowing. The central canal is patent. Mild right neural foraminal narrowing. L4-L5: Mild intervertebral disc space narrowing with disc desiccation. Small circumferential annular disc bulge with mild spondylitic spurring and severe facet arthrosis. Moderate bilateral facet effusions. The central canal is patent. Mild to moderate bilateral neural foraminal narrowing. L5-S1: Severe intervertebral disc space narrowing with unchanged grade 1 anterolisthesis. Moderate spondylitic spurring with circumferential annular disc bulge and disc space uncovering. Chronic bilateral L5 pars defects with severe facet arthrosis. The central canal is patent. Moderate right with moderate to severe left neural foraminal narrowing. IMPRESSION: 1. At L3-L4, there is a left foraminal annular fissure with disc extrusion which results in severe left-sided foraminal stenosis. 2. Chronic bilateral L5 pars defects with unchanged grade 1 anterolisthesis. There is moderate right with moderate to severe left neural foraminal narrowing at this interspace. 3. Multilevel facet arthrosis with associated discogenic degeneration and spondylitic spurring as above." PG Care Time/CCT Total # of Minutes Spent Total Time Spent with Patient: Total time spent is greater than 50% in coordination of care (as documented) at patient's floor/unit and/or counseling patient: Supervising Physician Co-Signing Physician Notes Patient was seen and assessed by Harsh CASANOVA PA-C, personally performed HPI (which includes the [facility]), physical exam, and assessment and plan. The plan was discussed with Dr. Villarreal. Coding Level of Care Code 79979 Inpt Consult Level 4 Diagnoses Lumbar disc herniation with radiculopathy M51.16
--- NOTE | 2021-04-19 13:14 | Pain Management Consultation ---
Date of Consultation April 19, 2021 Assessment & Plan (1) Lumbar radiculopathy: (2) Lumbar disc herniation with radiculopathy: (3) Chronic low back pain: (4) Spondylolisthesis at L5-S1 level: * Patient with acute on chronic axial low back pain with new onset left lower extremity radicular pain with MRI revealing a left foraminal disc extrusion at L3-4 resulting in severe left neuroforaminal narrowing with chronic findings of spondylosis and severe facet arthrosis at L4-5 and L5-S1 predominantly and chronic bilateral L5 pars defects with severe facet arthrosis. We discussed likely etiology of presenting complaints associated with the left L3-4 lumbar disc extrusion relating to her radicular pattern pain, numbness and weakness complaint. Patient appears to be fairly responding to oral steroid therapy. Would recommend continuing with oral steroids and taper upon discharge. * We did discuss her potential candidacy for a left L3-4 transforaminal ASTON with recurrent/persisting complaints which can occur in the outpatient setting. Patient may follow-up in pain clinic at her request. * Patient will continue with PT intervention * Consider mild oral opiate instead of IV morphine for any breakthrough pain upon this admission for discharge planning purposes-consider hydrocodone 5/325 mg Thank you for allowing us to participate in the care of Mrs. Rockwell. History of Present Illness Reason for Consultation: Intractable low back pain and left lower extremity paresthesia/weakness Requesting Physician: Ema Calles PA-C Attending Physician: Pacheco Minaya History of Present Illness Mrs. Rockwell is a 55-year-old white female who was admitted yesterday 04/18/2021 due to intractable low back pain extending into the left gluteal and lateral hip region. The patient reported onset of some increased axial low back pain last week and does have history of some chronic low back pain which was insignificant compared to chronic. She then developed acute pain extending in the left gluteal and lateral hip with some weakness and numbness sensation the day prior to admission. The patient denied any acute injury but reports that she was mowing grass and helping a friend lift a tree last week which may have contributed to increased symptoms. Patient indicates that her pain is 80% improved today with use of steroid therapy upon this admission, Toradol and Tylenol. She has not needed any opiate therapy over the past 12 hours. She rates her current pain at a 2-3/10 which is in the axial low back left greater than right-sided and into the lateral gluteal/hip region. She continues with some weakness of the left lower extremity and did undergo evaluation with physical therapy earlier today. She denies any pain traveling below the level of the knee on the left side. She denies any right lower extremity radicular pattern pain. She denies bowel or bladder incontinence or saddle anesthesia. She does have some chronic right lower extremity weakness with the foot and ankle which is been present for greater than 10 years per her report of unknown cause potentially related to horseback riding when she was younger. Patient has no further constitutional complaints. Plan of care discussed with Dr. Shelly Brenner Pain Assessment Full Body Front + Back: 1. Axial lumbar spine slightly left-sided 2. Left hip/proximal thigh radiating pain Pain scale - at its best (0-10): 2 Pain scale - at its worst (0-10): 4 Allergies Allergy/AdvReac Type Severity Reaction Status Date / Time No Known Drug Allergies Allergy Verified 03/19/21 08:23 Home Medications Medication Instructions Recorded Confirmed Type cyanocobalamin (vitamin B-12) 1,000 mcg PO QAM tab 04/08/19 04/18/21 History 1,000 mcg tablet,extended release multivitamin 1 tab PO QAM #30 tab 04/08/19 04/18/21 Rx cetirizine 10 mg tablet (All Day 10 mg PO DAILY #90 tab 03/15/20 04/18/21 Rx Allergy (cetirizine)) fluticasone propionate 50 2 spray INTNAS HS PRN gm 03/19/21 04/18/21 History mcg/actuation nasal spray,suspension (Allergy Relief (fluticasone)) methylprednisolone 4 mg tablets in 4 mg PO .qd #21 ea 04/18/21 Rx a dose pack (Medrol (Kunal)) oxycodone 5 mg tablet 5 mg PO Q4 PRN #20 tab 04/18/21 Rx Pain History Pain Intensity Pain scale - at its best (0-10): 2 Pain scale - at its worst (0-10): 4 Patient History Medical History (Updated 04/19/21 @ 13:10 by Julito Phelan PA-C) Acne Chronic low back pain Lumbar disc herniation with radiculopathy Lumbar radiculopathy Surgical History H/O shoulder surgery History of colonoscopy December 2015 repeat 10yrs History of endometrial ablation History of wisdom tooth extraction Family History Mother Breast cancer Grandfather (Maternal) Coronary heart disease Father Hemochromatosis Social History Smoking Status: Never smoker Second Hand Exposure: No; Hx Alcohol Use: Yes Alcohol type: wine Hx Substance Use: No Preferred Language: Azerbaijani Communication Ability: Effective 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 Speech and thought process appropriate. Mood and affect appropriate. Cognition intact. Head: Normocephalic and atraumatic. Abdomen: Soft and nondistended. No organomegaly. Bowel sounds active. Back/spine: Loss of lumbar lordosis. Nontender over the midline. Minimal tenderness over the lower lumbar facet joint region left greater than right- sided proximal level of L3-L5. Minimally tender in the paravertebral musculature. No appreciable spasm. No definable minor trigger points. Nontender over the SI joint bilaterally. Nontender throughout the gluteal mus culature. Lower extremities: SLR with slight increase in axial pain on the left. SLR negative on the right. Strength testing 4/5 on the right with dorsi flexion, EHL testing and plantar flexion compared to 5/5 in the left. Strength testing 4/5 on the left with hip flexion, hip extension and knee flexion/extension maneuvering compared to 5/5 on the right. Sensation appeared to be intact without deficit to sharp and dull of the bilateral lower extremities. DTRs 1+ L4 and S1 and equal bilaterally. Neurologic: Cranial nerves grossly intact. Ambulatory function not witnessed. No evidence of ankle clonus. Babinski downgoing bilaterally. Results (Pain Clinic) Diagnostic Review MRI Findings: [facility], [id number] Magnetic Resonance Report Patient: LUIS ROCKWELL Date: 04/18/21#: [id number]: Jelena PEREZ LNAcct ID:[id number]: [address]Birth Date: [address] Zip: [place] [id number]: [id number]: EDSex: FRoom/Bed:Att Phy:Diagnosis: BACK PAINPri Phy: Yue Richard MDService Date: 04/18/21Fa Phy:Interpreting Phy: Ronen Donohue Phy: Ordering Phy: Branden Amin M.D. cc: ~ MR lumbar spine wo con CLINICAL HISTORY: 55 years-old Female with left sided back rad down leg. Acute low back pain with radiation into the left lower leg COMPARISON: Lumbar spine radiographs 11/15/2020, CT abdomen pelvis 02/04/2020 TECHNIQUE: Multiplanar, multi sequence MRI of the lumbar spine was performed without intravenous contrast. 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 Probable cyst of the left kidney, 11 mm. Chronic bilateral L5 pars defects with unchanged 7 mm anterolisthesis L5 on S1. Discogenic degeneration with spondylitic spurring and facet arthrosis as detailed below. Mild Modic type I endplate degenerative changes at L4-L5. There is no acute fracture, subluxation, significant bone marrow or soft tissue edema. No endplate erosions. Conus medullaris terminates at T12-L1. Signal within the imaged thoracic spinal cord appears normal. T12-L1: Mild facet arthrosis. No central canal or neural foraminal stenosis. L1-L2: Mild facet arthrosis. No central canal or neural foraminal stenosis. L2-L3: Mild disc desiccation with spondylitic spurring and posterior annular disc bulge, eccentric to the right neural foramen and far right lateral space. Moderate facet arthrosis. The central canal is patent. Mild narrowing of the right lateral recess and bilateral neural foramen. L3-L4: Mild spondylitic spurring with moderate facet arthrosis and small posterior annular disc bulge. Left foraminal annular fissure with disc extrusion measures 4 x 3 mm in transverse and AP dimension on image 16 series 6 and measures up to 1.5 cm in craniocaudal dimension extending several millimeters superior to the inferior L3 endplate. There is resultant severe left neural foraminal narrowing. The central canal is patent. Mild right neural foraminal narrowing. L4-L5: Mild intervertebral disc space narrowing with disc desiccation. Small circumferential annular disc bulge with mild spondylitic spurring and severe facet arthrosis. Moderate bilateral facet effusions. The central canal is patent. Mild to moderate bilateral neural foraminal narrowing. L5-S1: Severe intervertebral disc space narrowing with unchanged grade 1 anterolisthesis. Moderate spondylitic spurring with circumferential annular disc bulge and disc space uncovering. Chronic bilateral L5 pars defects with severe facet arthrosis. The central canal is patent. Moderate right with moderate to severe left neural foraminal narrowing. IMPRESSION: 1. At L3-L4, there is a left foraminal annular fissure with disc extrusion which results in severe left-sided foraminal stenosis. 2. Chronic bilateral L5 pars defects with unchanged grade 1 anterolisthesis. There is moderate right with moderate to severe left neural foraminal narrowing at this interspace. 3. Multilevel facet arthrosis with associated discogenic degeneration and spondylitic spurring as above. ACT 112: Negative or not required by law. The above report was generated using voice recognition software. It may contain grammatical, syntax or spelling errors. Electronically signed by: Ronen Feuntes M.D. 04/18/2021 5:58 PM Dictated: 04/[id number]: 04/18/21 174
--- NOTE | 2021-04-19 15:35 | Discharge Summary ---
Date of Service April 19, 2021 Admission HPI Per Admitting Provider Bessy Desai is a 55yo female with no significant medical history presenting with intractable back pain, difficulty with ambulation. Patient mowed the lawn last week and helped her friend with some landscaping. She states that her back felt tight following these activities. Last evening around 23:00 she had acute worsening of her low back pain. She was unable to rest. This morning she was unable to get out of bed and ambulate. Her pain is located on left lumbar region with radiation into her left buttock as well as numbness in her left medial thigh and knee. She feels that her left leg is weak and gives out on her with ambulation. She denies trauma. No fever/chills/rigors. Denies bowel or bladder incontinence or retention. No additional complaints at this time. Specifically denies chest pain, palpitations, cough, SOB, nausea, vomiting, diarrhea or constipation. ER Course: Morphine 4mg IV x 3, Toradol 10mg IV x 2, Zofran 4mg IV, Solumedrol 125mg IV Admission Exam Per Admitting Provider General: patient resting comfortably, NAD, non-toxic in appearance, AA&O x 4 Skin: warm, dry, intact, no rashes or lesions HEENT: NC/AT, PERRL, EOMI, anicteric sclera, conjunctiva without injection, external ear normal to inspection and nontender, nares patent, moist mucus membranes, dentition intact, no oropharyngeal lesions, neck supple, trachea midline, no LAD, no thyromegaly, no JVD Heart: +S1/S2, regular, no m/r/g Lungs: equal air entry bilaterally, no rales/rhonchi/wheezes Abd: +BS, soft, NT/ND, no masses/organomegaly/ascites Ext: warm, 2+ pulses in UE/LE bilaterally, no clubbing/cyanosis or edema Neuro: nonfocal, patient AA&O x 4, speech intact, no facial droop, moving all extremities on command with equal strength 5/5 Pain with palpation of left lumbar region and sacral region Mild numbness of left medial thigh and knee Strength intact Principal Diagnosis Lumbar disc herniation with radiculopathy Discharge Exam General: patient resting comfortably, NAD, non-toxic in appearance, AA&O x 4, ambulating with walker with therapy for stability with much improvement in comfort Skin: warm, dry, intact, no rashes or lesions HEENT: NC/AT, PERRL, EOMI, anicteric sclera, conjunctiva without injection, external ear normal to inspection and nontender, nares patent, moist mucus membranes, dentition intact, no oropharyngeal lesions, neck supple, trachea midline, no LAD, no thyromegaly, no JVD Heart: +S1/S2, regular, no m/r/g Lungs: equal air entry bilaterally, no rales/rhonchi/wheezes Abd: +BS, soft, NT/ND, no masses/organomegaly/ascites Ext: warm, 2+ pulses in UE/LE bilaterally, no clubbing/cyanosis or edema Neuro: nonfocal, patient AA&O x 4, speech intact, no facial droop, moving all extremities Pain with palpation of left lumbar region and sacral region Mild numbness of left medial thigh and knee dermatomal distribution Strength intact, pulses palpable R foot drop (chronic). no clonus Strength slightly decreased LLE >RLE but improved from admission Discharge Data Allergies Allergy/AdvReac Type Severity Reaction Status Date / Time No Known Drug Allergies Allergy Verified 03/19/21 08:23 Consultations 04/18/21 18:13 ED Decision to Admit Stat 04/19/21 08:49 Consult Pain Management Routine Ordered Studies Lumbar Spine MRI 04/18/21 16:10 MR lumbar spine wo con CLINICAL HISTORY: 55 years-old Female with left sided back rad down leg. Acute low back pain with radiation into the left lower leg COMPARISON: Lumbar spine radiographs 11/15/2020, CT abdomen pelvis 02/04/2020 TECHNIQUE: Multiplanar, multi sequence MRI of the lumbar spine was performed without intravenous contrast. 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 Probable cyst of the left kidney, 11 mm. Chronic bilateral L5 pars defects with unchanged 7 mm anterolisthesis L5 on S1. Discogenic degeneration with spondylitic spurring and facet arthrosis as detailed below. Mild Modic type I endplate degenerative changes at L4-L5. There is no acute fracture, subluxation, significant bone marrow or soft tissue edema. No endplate erosions. Conus medullaris terminates at T12-L1. Signal within the imaged thoracic spinal cord appears normal. T12-L1: Mild facet arthrosis. No central canal or neural foraminal stenosis. L1-L2: Mild facet arthrosis. No central canal or neural foraminal stenosis. L2-L3: Mild disc desiccation with spondylitic spurring and posterior annular disc bulge, eccentric to the right neural foramen and far right lateral space. Moderate facet arthrosis. The central canal is patent. Mild narrowing of the ri ght lateral recess and bilateral neural foramen. L3-L4: Mild spondylitic spurring with moderate facet arthrosis and small posterior annular disc bulge. Left foraminal annular fissure with disc extrusion measures 4 x 3 mm in transverse and AP dimension on image 16 series 6 and measures up to 1.5 cm in craniocaudal dimension extending several millimeters superior to the inferior L3 endplate. There is resultant severe left neural foraminal narrowing. The central canal is patent. Mild right neural foraminal narrowing. L4-L5: Mild intervertebral disc space narrowing with disc desiccation. Small circumferential annular disc bulge with mild spondylitic spurring and severe facet arthrosis. Moderate bilateral facet effusions. The central canal is patent. Mild to moderate bilateral neural foraminal narrowing. L5-S1: Severe intervertebral disc space narrowing with unchanged grade 1 anterolisthesis. Moderate spondylitic spurring with circumferential annular disc bulge and disc space uncovering. Chronic bilateral L5 pars defects with severe facet arthrosis. The central canal is patent. Moderate right with moderate to severe left neural foraminal narrowing. IMPRESSION: 1. At L3-L4, there is a left foraminal annular fissure with disc extrusion which results in severe left-sided foraminal stenosis. 2. Chronic bilateral L5 pars defects with unchanged grade 1 anterolisthesis. Th ere is moderate right with moderate to severe left neural foraminal narrowing at this interspace. 3. Multilevel facet arthrosis with associated discogenic degeneration and spondylitic spurring as above. ACT 112: Negative or not required by law. The above report was generated using voice recognition software. It may contain grammatical, syntax or spelling errors. Electronically signed by: Ronen Fuentes M.D. 04/18/2021 5:58 PM Hospital Course (1) Intractable low back pain: 55yo female with no significant past medical history presenting with severe backpain, difficulty ambulating. Patient mowed the lawn and did some lifting last week and noted soreness of her back. Has had severe pain with radicular symptoms since 23:30 last evening. Numbness in LLE corresponds with L3-L4 dermatome. MRI Lumbar Spine: IMPRESSION: 1. At L3-L4, there is a left foraminal annular fissure with disc extrusion which results in severe left-sided foraminal stenosis. 2. Chronic bilateral L5 pars defects with unchanged grade 1 anterolisthesis. There is moderate right with moderate to severe left neural foraminal narrowing at this interspace. 3. Multilevel facet arthrosis with associated discogenic degeneration and spondylitic spurring as above. Patient administered several doses of morphine as well as solumedrol in the ER to gain adequate control at first (did not require any further morphine after the steroids first thing in morning prior to discharge) Ortho consulted -- recommended conservative management first at this time and follow up outpatient Pain management consulted -- no inpatient ASTON but can follow up outpatient if steroid taper ineffective. they sent rx for oxycodone but patient unlikely to take and would like to avoid at this time. Discussed if needed for increased/breakthrough pain MUCH improvement with steroids and Toradol while inpatient --> sent on predni sone taper 60mg x 2 days, 40mg x 2, 20mg x 2, 10mg x 2 taper to complete course --> Previous use of celebrex was effective with steroids and sent short course at discharge Pain management sent rx for oxycodone and discussed with patient she can hold off on taking this unless need (has not taken in the past even with prior surgery) Recommend that she limit heavy lifting/twisting to prevent worsening of this and advance with therapy outpatient as tolerated if required after steroids/NSAIDs PT/OT evaluation -- ok for home. Rec continued use of walker given RIGHT foot drop (previously noted by PCP and patient states she had an MRI of Brain done in past) --> Discuss f/u with PCP and may benefit from AFO brace in future. She is ok w/ holding off for now as she has been managing but did discuss given herniation on the left causing issues this may be beneficial in the future for balance/ambulation and to prevent falls Urine cx w pin-point growth, re-incubating --> FINAL moderate mixed skin imani No urinary sx or CVA tenderness byt reported hx of hematuria. To have f/u soon with Urology. --> Rec'd she continue to keep this appointment for further evaluation to r/o underlying mass causing this issue vs bladder stone/other. Also checked lyme --> NEGATIVE (2) Hematuria: intermittent over past couple of years hgb stable urine cx with normal imani per review --> seen last by Dr. Cole Apr 2020 with cystoscopy -- no masses/lesions identified per patietn, to have f/u urology soon --> recommended she keep this appt (3) Right foot drop: Chronic RIGHT drop, previously noted by PCP and patient states she had an MRI of Brain done in past per patient --> Recommended to discuss f/u with PCP and may benefit from AFO brace in future. She is ok w/ holding off for now as she has been managing but did discuss given herniation on the LEFT causing issues this may be beneficial in the future for balance/ambulation and to prevent falls Total Time Total Time Spent Total Time Spent (In Minutes): 35 Discharge Plan Discharge Items Patient Disposition: Home - Self-Care Reason For Visit: BACK PAIN, INABILITY TO AMBULATE Discharge Diagnosis: Lumbar Disc Herniation with Radiculopathy Goals: You have been hospitalized for an acute medical problem. During your stay at [facility], we have made an effort to correct the problem that brought you to the hospital while keeping you as comfortable as possible. Medications were used to bring your condition under control and your discharge instructions will include directions for any medications you should take after leaving the hospital. Please make sure you see your Primary Care Provider as part of your follow up plan. Activity: As commented below Activity Comment: with walker for stability then advance as tolerated Non-emergency contact: Primary Care Provider, Surgeon and Therapist Call non-emergency contact if: you have any medication questions, your symptoms worsen and your pain is not controlled Follow-up/Referrals: Shelly Brenner DO [Physician] - (1 month, Re: possible ASTON injection) Yue Richard MD [Primary Care Provider] - 04/24/21 1:30 pm Mikaela Villarreal MD [Physician] - (1-2 weeks) Diet: Regular Addtl Attending Provider Instructions: You have been hospitalized for back pain and found to have a herniated disc on imaging which is likely cause of your issue. You were started on anti-inflammatory agents as well as steroids and pain management was also consulted as it would not be ideal to pursue surgery until we exhaust conservative measures. You have been sent on a steroid dose pack with prednisone as follows: -- 60 mg tomorrow by mouth, then -- 40mg for 2 days, then -- 20mg x 2 days, then -- 10mg x 2 days to complete treatment You can discard prior MEDROL dose cory already sent. Please note these can cause elevations in blood pressure/hunger/swelling and if you notice any headache/blurry vision would recommend checking your blood pressure as discussed. You have also noted improvement with Celebrex in the past, as this is anti- antiinflammatory agent and you have been sent a short course of this to take twice daily as needed for up to ten days. Thankfully you do not have a history fo diabetes so there will not be any need for insulin coverage as steroids can increase blood sugars. Of note, sometimes steroids can cause people to have some acid reflux and you can take some Tums/Zantac over the counter if this occurs. If persistent, please call your doctor. You were evaluated by therapy and determined to be good enough for discharge home but it is strongly encouraged as discussed to utilize a walker with ambulation for stability. As mentioned, it may be a good idea if you have worsening issues with that right sided foot drop that you consider seeing if an insert (termed an AFO) would be helpful in the future given your symptoms/weakness are on the left side. It may not be a bad idea to have a lyme test done to ensure no other causes for weakness given the foot drop on the right to rule out any neuritis that could be possibly caused by this however didn't have any other signs of lyme on admission --> this lab was added to blood prior to discharge and will notify you if results are positive. Please follow up with your primary care provider in week to monitor your progress. You may follow up with Pain Management in the next month if continued issues to see about an injection as discussed. They did send a short course of oxycodone but as we talked about, you can refrain from taking that as you have not needed opiates outside of in the ER. Please follow up with Orthopedics as needed in the future (next 1-2 weeks) if conservative measures are not effective as outlined above : steroids, anti- inflammatory. Recommend again outpatient physical therapy if medications not effective. Your urine did look a little cloudy on analysis but did not have any bacteria. Culture pending at time of discharge but will also call you if any bacteria do end up with any growth. Given previous history of blood in the urine in the past as well you should definitely follow up with Urology as you previously were undertaking for evaluation of bladder stone/underlying mass would be the diagnosis to exclude. If you have any increased weakness/loss of bowel/bladder function/become incontinent or for any fever, uncontrolled pain, chest pain, shortness of breath, please return to the emergency department. It has been a pleasure being a part of the medical team providing for you while you have been in the hospital. Take care! Pending Studies at Discharge: Yes Studies:: Lyme Urine culture-- pin-point growth Stand-Alone Forms: [facility], Opioid Pain Management Medications and DC Order Prescriptions: New oxycodone 5 mg tablet 5 mg PO Q4 PRN (Reason: pain) Qty: 20 RF: 0 celecoxib [Celebrex] 100 mg capsule 100 mg PO BID 10 Days Qty: 20 RF: 0 prednisone 20 mg Tablet See Rx Instructions .ROUTE .COMPLEX Qty: 10 RF: 0 Continued cetirizine [All Day Allergy (cetirizine)] 10 mg tablet 10 mg PO DAILY Qty: 90 RF: 3 cyanocobalamin (vitamin B-12) 1,000 mcg tablet extended release 1,000 mcg PO QAM RF: 0 multivitamin tablet 1 tab PO QAM Qty: 30 RF: 0 fluticasone propionate [Allergy Relief (fluticasone)] 50 mcg/actuation spray,suspension 2 spray INTNAS HS PRN (Reason: Allergy Symptoms) RF: 0 Discharge Orders: Discharge Order (Routine); Ordered 04/19/21 Ordered By: Ema Calles Admission Data Admit Date/Time: 04/18/21 19:39 Attending Provider: Pacheco Minaya Admit Provider: Nola Sanchez Primary Care Provider: Yue Richard Other Providers: Estuardo Baxter ; Shlely Brenner Other Interventions: Discharge Summary Assessment (RN) Last Done: 04/19/21 15:41 Coding Level of Care Code 35538 OBS Care - Discharge Diagnoses Intractable low back pain M54.59 Hematuria R31.9 Right foot drop M21.371
[2021-04-19 15:37] LABS: Lyme Ab IgG w/WB Rflx Negative (Negative); Lyme Ab IgM w/WB Rflx Negative (Negative)
== END 2021-04-19 16:00 | disposition home or self-care (01) ==
LOC: 3N 11:45 → ED 11:45 → SUATTDRO 19:39 → 3N 21:35